=== PATIENT | male | born 2000 | race Caucasian/White ===

== ENCOUNTER 2024-12-28 09:24 | Emergency (ER) | payer BC ==
[2024-12-28] MEDS: Acetaminophen/HYDROcodone 325-5 MG Tab PO ONE (09:40)
== END 2024-12-28 10:19 | disposition home or self-care (01) ==
LOC: MW.ED 09:24
DX: S97.81XA Crushing injury of right foot, initial encounter (principal); W20.8XXA Other cause of strike by thrown, projected or falling object, initial encounter; Y93.89 Activity, other specified
CPT/HCPCS: 73620; 99283; A9270; 99282